=== PATIENT | male | born 1955 | race African-American/Black ===

== ENCOUNTER 2017-02-18 11:40 | Emergency (ER) | payer MEDICAID ==
[2017-02-18 11:57] VITALS: BP 110/79; PULSE 83; RESP 18; TEMP 98.1; O2SAT 94
--- NOTE | 2017-02-18 12:59 | EDPHY ---
HPI/HX/ROS/PE/MDM Narrative: CHIEF COMPLAINT: Ankles hurt while walking. HISTORY OF PRESENT ILLNESS: This patient is a pleasant 61 year old male complaining of bilateral ankle pain while walking. He states he primarily commutes by walking, and is quite bothered by his discomfort. He reports he fractured his right ankle about two years ago, and received treatment at [facility]. He reports he wore an orthopedic boot until nine months ago, but has continued to experience discomfort while walking. He states he take Ibuprofen for pain control. He endorses occasional numbness to the tops of his feet. He denies calf pain or cramping, or burning on the bottoms of his feet. No fever, chills, chest pain, shortness of breath, palpitations, vomiting, diarrhea, urinary complaints, headache, lightheadedness. No recent trauma, no falls, no swelling, no arthritis. REVIEW OF SYSTEMS: Aside from elements discussed in the HPI, a comprehensive 10-point review of systems was reviewed and is negative. PAST MEDICAL HISTORY: Hypertension. SOCIAL HISTORY: Originally from [facility]. PCP: Dara. VITAL SIGNS: Reviewed by me GENERAL: Well-developed, well-nourished, resting comfortably in no respiratory distress. HEENT: Atraumatic. LUNGS: Clear to auscultation bilaterally, no wheezes, rhonchi or rales. CARDIAC: Regular rate and rhythm. ABDOMEN: Soft, nontender, nondistended BACK: No CVA tenderness. EXTREMITIES: Ankles: No swelling, no erythema. Flat-footed. No trauma. No edema. Range of motion is normal throughout. NEURO: Alert and oriented, grossly nonfocal. SKIN: Warm and dry, no rash. PSYCHIATRIC: Normal mentation, no agitation. Portions of this note were transcribed by a medical staffing coordinator. I personally performed a history, physical exam, medical decision making, and confirmed accuracy of information the transcribed note. ED Course: This patient is a 61 year old male presenting with history of ankle pain secondary to fracture two years ago. Physical exam is unremarkable. Plan for ankle x-ray to assess for osseous abnormalities or other processes. X-ray of both ankles independently reviewed and interpreted by me. No effusions , no arthitic changes noted, no osseous abnormalities. The patient will be discharged home in good condition with a prescription for Gabapentin and referrals to a high school principal and employment service specialist. The patient is comfortable with this plan. MDM: Diff dx considered included arthritis, chronic sprain, muscles strain, plantar fascitis, claudication, peripheral neuropathies, degenerative joint disease. - Data Points Imaging: I viewed and interpreted images myself Medications Given: Discontinued Medications Acetaminophen (Tylenol) 1,000 mg PO EDNOW ONE Stop: 02/18/17 13:01 Last Admin: 02/18/17 13:04 Dose: 1,000 mg General Initial Vital Signs: Initial Vital Signs Temperature (C) 36.7 C 02/18/17 11:55 Heart Rate 83 02/18/17 11:55 Respiratory Rate 18 02/18/17 11:55 Blood Pressure 110/79 02/18/17 11:55 O2 Sat (%) 94 02/18/17 11:55 O2 Delivery Mode Room Air Allergies/Adverse Reactions: No Known Allergies Allergy (Verified 02/18/17 11:54) Home Medications: Medication Instructions Recorded High Blood Pressure Med 08/05/12 Gabapentin [Neurontin 300 MG (*)] 300 mg PO TID #30 cap 02/18/17 Departure - Departure Disposition: Home, Routine, Self-Care Clinical Impression: Ankle pain, right Condition: Good Instructions: Arthralgia (ED) Additional Instructions: 1. We have referred you to a foot doctor, Dr. Phoenix, and a foot and ankle specialist, Dr. Lloyd. You may follow up with one of these physicians for continued management of your ankle pain and pain while walking. 2. Take Gabapentin as prescribed for pain. 3. We recommend Acetaminophen (Tylenol) and Ibuprofen (Motrin,Advil) for pain control. When pain is severe, both drugs can be used at the same time, but at different intervals. Please note the time differences. Your dose is: Acetaminophen 650-1000 mg every 4 to 6 hours Ibuprofen 600mg every 8 hours with food No more than 3000mg of Acetaminophen should be taken in 24 hours (for an adult) . Referrals: [facility] [Outside] - As per Instructions Nicholas Phoenix DPM [Doctor of Podiatric Medicine] - As per Instructions Aroldo Lloyd MD [Medical Doctor] - As per Instructions Prescriptions: Gabapentin [Neurontin 300 MG (*)] 300 mg PO TID #30 cap Report Scribed for: Riya Talavera Report Scribed by: Gemma Velasquez Date of Report: 02/18/17 Time of Report: 12:59
[2017-02-18] MEDS ORDERED: ACETAMINOPHEN 500 MG TAB PO ONE (13:00)
[2017-02-18] MEDS ORDERED: ACETAMINOPHEN 500 MG TAB ONE (13:02)
== END 2017-02-18 15:11 | disposition home or self-care (01) ==
DX: M25.571 Pain in right ankle and joints of right foot (principal); I10 Essential (primary) hypertension

== ENCOUNTER → 2017-08-18 | Outpatient (CLI) | payer MEDICAID | LOC: FIMAGING 10:20 | PROVIDERS: ATTEND Psychiatry & Neurology Neurology | DX: R25.1 Tremor, unspecified (principal) ==

== ENCOUNTER → 2017-12-27 | Outpatient (CLI) | payer MEDICAID ==
[~2017-12-27] MED LIST: IOPAMIDOL (ISOVUE 370) 100 ML BTL IV ONE
== END ==
LOC: FIMAGING 10:54
PROVIDERS: ATTEND Psychiatry & Neurology Neurology
DX: R29.810 Facial weakness (principal); R29.818 Other symptoms and signs involving the nervous system; G93.89 Other specified disorders of brain
CPT/HCPCS: Q9967

== ENCOUNTER → 2018-11-26 | Outpatient (CLI) | payer OTHER | LOC: CIMAGING 09:32 | PROVIDERS: ATTEND Nurse Practitioner Family | DX: R09.89 Other specified symptoms and signs involving the circulatory and respiratory systems (principal); R07.81 Pleurodynia | CPT/HCPCS: 71046-PO; 71100-PO ==